=== PATIENT | female | born 1955 | race Caucasian/White ===

== ENCOUNTER 2022-03-23 13:19 | Observation (INO) | payer OTHER ==
--- OUTSIDE RECORDS SUMMARY | 2022-03-23 13:22 | XMS REPORT | Continuity of Care Document ---
:1955 Author Organization [facility] t Address [address] [place] [address] Care Team Providers Name Role Phone Natalee Yolanda Attending Clinician Unavailable Problems This patient has no known problems. Allergies, Adverse Reactions, Alerts Allergy Allergy Status Severity Reaction(s) Onset Inactive Treating Comm ents Source Name Type Date Date Clinician Aspirin Adverse Active Info Not Common Reaction Available [facility] Medications Ordered Filled Start Stop Current Ordering Indication Dosage Frequency Signature Comments Components Source Medication Medication Date Date Medication? Clinician (SIG) Name Name Pallavi Olivo 0 Yes Yolanda 1 tablet Comm on Thyroid Thyroid 1-24 [place] [facility] 00:00: empty - [facility] 00 stomach [facility] Procedures This patient has no known procedures. Encounters Start End Encounter Admission Attending Care Care Encounter Source Date/Time Date/Time Type Type Clinicians Facility Department ID 2022-02-06 Outpatient OLGA Albright [facility] [id number] Common 10:31:00 Yolanda [id number] [facility] 2022-01-24 Outpatient OLGA Albright [facility] [id number] Common 07:37:00 Yolanda [facility] 2021-09-12 Outpatient Natalee [facility] [id number] Common 14:35:00 Yolanda [facility] 2021-08-28 Outpatient [place], STLMLC STL[facility]C [id number] Common 14:37:53 Yolanda [id number] [facility] 2021-08-28 Outpatient Natalee, STLMLC STL[facility]C [id number] Common 13:25:48 Yolanda [id number] [facility] 2022-02-10 2022-02-10 ambulatory [facility]C ST[facility] [id number] Common 00:00:00 00:00:00 [facility] 2022-01-27 2022-01-27 ambulatory STLMLC STL[facility]C [id number] Common 00:00:00 00:00:00 [facility] 2021-08-06 2021-08-06 ambulatory STLMLC STL[facility]C [id number] Common 00:00:00 00:00:00 [facility] 2021-06-25 2021-06-25 ambulatory STLMLC STLMLC [id number] Common 00:00:00 00:00:00 [facility] 2021-06-13 2021-06-13 ambulatory STLMLC STLMLC [id number] Common 00:00:00 00:00:00 [facility] 2021-06-12 2021-06-12 ambulatory STLMLC STL[facility]C [id number] Common 00:00:00 00:00:00 [facility] 2021-06-12 2021-06-12 ambulatory STLMLC STLMLC [id number] Common 00:00:00 00:00:00 [facility] 2021-04-15 2021-04-15 Outpatient [facility]C STL[facility]C [id number] Common 00:00:00 00:00:00 [facility] 2021-03-13 2021-03-13 Outpatient [facility]C STL[facility] [id number] Common 00:00:00 00:00:00 [facility] 2021-01-28 2021-01-28 Outpatient STL[facility]C STL[facility]C [id number] Common 00:00:00 00:00:00 [facility] 2020-10-16 2020-10-16 Outpatient ST[facility]C ST[facility] [id number] Common 00:00:00 00:00:00 [facility] 2020-05-03 2020-05-03 Outpatient [facility] ST[facility] [id number] Common 00:00:00 00:00:00 [facility] 2019-12-09 2019-12-09 [facility] [id number] Common 14:00:00 14:00:[address] [facility] 2019-12-07 2019-12-07 [facility] [id number] Common 14:00:00 14:00:[address] [facility] 2019-11-09 2019-11-09 [facility] [id number] Common 09:02:00 09:02:[address] [facility] 2019-08-08 2019-08-08 [facility] [id number] Common 16:00:00 16:00:[address] [facility] 2019-05-20 2019-05-20 [facility] [id number] Common 15:16:00 15:16:[address] [facility] 2019-05-05 2019-05-05 [facility] [id number] Common 09:40:00 09:40:[address] [facility] 2019-05-03 2019-05-03 [facility] [id number] Common 14:11:00 14:11:[address] [facility] 2019-04-12 2019-04-12 [facility] [id number] Common 09:00:00 09:00:[address] [facility] 2019-02-09 2019-02-09 [facility] [id number] Common 10:00:00 10:00:[address] [facility] 2019-01-21 2019-01-21 [facility] [id number] Common 12:51:00 12:51:[address] [facility] 2019-01-21 2019-01-21 [facility] [id number] Common 11:45:00 11:45:[address] [facility] 2018-11-30 2018-11-30 [facility] [id number] Common 10:16:00 10:16:[address] [facility] 2018-11-22 2018-11-22 [facility] [id number] Common 14:20:00 14:20:[address] [facility] 2018-11-15 2018-11-15 [facility] [id number] Common 11:40:00 11:40:[address] [facility] 2018-07-28 2018-07-28 [facility] [id number] Common 16:32:00 16:32:[address] [facility] 2018-03-10 2018-03-10 [facility] [id number] Common 13:00:00 13:00:[address] [facility] 2018-03-08 2018-03-08 [facility] [id number] Common 11:39:00 11:39:[address] [facility] 2018-03-02 2018-03-02 [facility] [id number] Common 11:00:00 11:00:[address] [facility] Results This patient has no known results.
[2022-03-23 14:54] LABS: Absolute Lymphocytes (CBC) 0.9 K/uL (0.7-4.9); Hematocrit 41.1 % (36.0-45.0); Lymphocytes % 7.9 % (15.3-44.8); MCV 92.4 fL (80-100); MPV 7.3 fL (7.6-11.3); RBC Red Blood Cell Count 4.45 M/uL (3.86-4.86)
[2022-03-23] MEDS ORDERED: NA CHLORIDE 0.9% 1,000 ML ONE (14:59)
[2022-03-23] MEDS ORDERED: MORPHINE 2 MG/ML SYR ONE (14:59)
[2022-03-23] MEDS ORDERED: ONDANSETRON 4 MG/2 ML VIAL ONE ×2 (14:59→17:26)
[2022-03-23 15:06] LABS: Urine Blood Negative (Negative); Urine Glucose Negative (Negative); Urine Protein 1+ (Negative); Urine Specific Gravity 1.025 (1.005-1.030)
[2022-03-23 15:07] LABS: Albumin 3.6 g/dL (3.4-5.0); Bilirubin Total 1.2 mg/dL (0.2-1.0); Potassium 3.8 mmol/L (3.5-5.1); Protein, Total 7.2 g/dL (6.4-8.2)
[2022-03-23 15:33] LABS: Urine Bacteria <20 /HPF (<20); Urine RBC <5 /HPF (None Seen)
[2022-03-23 15:34] LABS: Urine Mucus 4+ /HPF (None Seen)
--- NOTE | 2022-03-23 16:01 | RAD REPORT ---
EXAM DESCRIPTION: CT - Abdomen Pelvis W Contrast - 03/23/2022 3:36 pm CLINICAL HISTORY: RLQ abdominal pain COMPARISON: No comparisons TECHNIQUE: Biphasic, helical CT imaging of the abdomen and pelvis was performed following 100 ml non -ionic IV contrast. No oral contrast administered. All CT scans are performed using dose optimization technique as appropriate and may include automated exposure control or mA/KV adjustment according to patient size. FINDINGS: No suspicious findings in the lung bases. The liver, spleen, and pancreas show no suspicious findings. Gallbladder and biliary tree are also wi thout suspicious finding. Symmetric renal function is seen with no hydronephrosis or suspicious renal mass. No pyelonephritis o r acute parenchymal process. No bladder abnormalities. No adrenal abnormalities. In the right lower quadrant there is a tubular structure 11 mm in diameter. There is an associated 11 millimeter hyperdensity present not seen elsewhere in the abdomen or pelvis. There is fluid and ariela a in the surrounding fatty tissues. Terminal ileum and ileocecal valve are not well defined. The shelley ent has a paucity of intraabdominal fat resulting in crowded isodense bowel structures. No normal air -filled appendix seen. Full assessment is limited in the absence of oral contrast. Exam findings are considered suspicious for acute appendicitis. No dilated large or small bowel loops. No free air or p neumatosis. No abscess or abnormal fluid collection. No hernia, mass or bulky lymphadenopathy. No suspicious bony findings. IMPRESSION: As detailed above, right lower quadrant findings are highly suspicious for acute appendi citis. No free air, abscess or other complicating factor seen. Appendix is in classic right lower quadrant l ocation.
--- NOTE | 2022-03-23 16:43 | EDPHYS ---
Physician Documentation [facility] Name: Konrad Mims Age: 66 yrs Sex: Female : 1955 Arrival Date: 03/23/2022 Time: 13:21 Bed 19 Private MD: Yolanda Albright ED Physician Apryl Diaz HPI: 03/23 14:30 This 66 yrs old Female presents to ER via Ambulatory with complaints of Abdominal Pain. cp 14:30 The patient presents with abdominal pain right lower quadrant. Onset: The cp symptoms/episode began/occurred yesterday, and became worse today. The symptoms do not radiate. Associated signs and symptoms: Pertinent positives: diarrhea, nausea, vomiting, Pertinent negatives: chest pain, constipation, dysuria, fever. The symptoms are described as constant. Modifying factors: the symptoms are aggravated by movement, pressure. 14:30 Severity of pain: in the emergency department the pain is unchanged despite home cp interventions. Historical: - Allergies: 14:09 Aspirin; iw - Home Meds: 14:09 [place] Thyroid 15 mg Oral tab daily [Active]; iw - PMHx: 14:09 Hypothyroidism; iw - Immunization history:: Adult Immunizations unknown. - Social history:: Smoking status: unknown. ROS: 14:35 Constitutional: Negative for body aches, chills, fever, poor PO intake. cp 14:35 Eyes: Negative for injury, pain, redness, and discharge. cp 14:35 ENT: Negative for drainage from ear(s), ear pain, sore throat, difficulty swallowing, difficulty handling secretions. 14:35 Cardiovascular: Negative for chest pain, palpitations. 14:35 Respiratory: Negative for cough, shortness of breath, wheezing. 14:35 Abdomen/GI: Positive for abdominal pain, nausea, vomiting, and diarrhea, of the right lower quadrant, Negative for constipation, black/tarry stool, rectal bleeding. 14:35 Neuro: Negative for altered mental status, dizziness, headache, weakness. 14:35 All other systems are negative. Exam: 14:40 Constitutional: The patient appears in no acute distress, alert, awake, non-toxic, well cp developed, well nourished, uncomfortable. 14:40 Head/Face: Normocephalic, atraumatic. cp 14:40 Eyes: Periorbital structures: appear normal, Conjunctiva: normal, no exudate, no injection, Sclera: no appreciated abnormality, Lids and lashes: appear normal, bilaterally. 14:40 ENT: External ear(s): are unremarkable, Nose: is normal, Mouth: Lips: moist, Oral cp mucosa: pink and intact, moist, Posterior pharynx: Airway: no evidence of obstruction, patent. 14:40 Chest/axilla: Inspection: normal. cp 14:40 Cardiovascular: Rate: normal, Rhythm: regular, Edema: is not appreciated, JVD: is not appreciated. 14:40 Respiratory: the patient does not display signs of respiratory distress, Respirations: normal, no use of accessory muscles, no retractions, labored breathing, is not present, Breath sounds: are clear throughout, no decreased breath sounds, no stridor, no wheezing. 14:40 Abdomen/GI: Inspection: abdomen appears normal, Bowel sounds: active, all quadrants, Palpation: soft, in all quadrants, moderate abdominal tenderness, in the right lower quadrant, rebound tenderness, is not appreciated, involuntary guarding, is elicited in the right lower quadrant. 14:40 Back: CVA tenderness, is absent. 14:40 Skin: cellulitis, is not appreciated, no rash present. 14:40 Neuro: Orientation: to person, place \T\ time. Mentation: is normal. Vital Signs: 14:07 BP 134 / 82; Pulse 83; Resp 16; Temp 99.1; Pulse Ox 100% on R/A; iw 14:58 BP 107 / 68; Pulse 74; Resp 16; Pulse Ox 100% on R/A; Pain 6/10; bm7 16:07 BP 122 / 78; Pulse 74; Resp 15; Pulse Ox 95% ; jl7 MDM: 14:26 Patient medically screened. cp 15:00 Differential diagnosis: appendicitis, diverticulitis, Pyelonephritis, Ureterolithiasis, cp urinary tract infection, colitis. 16:30 Physician consultation: Ephraim Beckham MD was called at 16:25, was contacted at 16:30, regarding consult, patient's condition, would like admission per Dr. Pankaj Pelaez MD wants OR crew contacted at this time. 16:30 Data reviewed: vital signs, nurses notes, lab test result(s), radiologic studies, CT cp scan, and as a result, I will admit patient. Counseling: I had a detailed discussion with the patient and/or guardian regarding: the historical points, exam findings, and any diagnostic results supporting the discharge/admit diagnosis, lab results, radiology results, the need for further work-up and treatment in the hospital. 03/23 14:24 Order name: CBC with Diff; Complete Time: 15:04 03/23 15:05 Interpretation: Normal except: WBC 11.40; MPV 7.3; MARK% 86.1; LYM% 7.9; NEUT A 9.8. 03/23 14:24 Order name: CMP; Complete Time: 16:20 03/23 16:20 Interpretation: Normal except: NA 131; GLUC 145; BUN 21; GFR 86; BILIT 1.2; GLOB 3.6; cp A/G 1.0. 03/23 14:24 Order name: Lipase; Complete Time: 16:20 03/23 14:27 Order name: Urine Microscopic Only; Complete Time: 16:20 03/23 15:06 Order name: Urine Dipstick-Ancillary; Complete Time: 16:20 [facility] 03/23 16:20 Interpretation: Normal except: UKET 1+; UPROT 1+; UESTR 1+. 03/23 15:37 Order name: Urine Culture [facility] 03/23 14:27 Order name: CT Abd/Pelvis - IV Contrast Only; Complete Time: 16:20 03/23 16:21 Interpretation: Report reviewed. 03/23 16:51 Order name: SARS RAPID; Complete Time: 21:08 03/23 14:24 Order name: IV Saline Lock; Complete Time: 14:57 03/23 14:24 Order name: Labs collected and sent; Complete Time: 14:57 03/23 14:24 Order name: Urine Dipstick-Ancillary (obtain specimen); Complete Time: 16:07 Administered Medications: 14:57 Drug: morphine 2 mg Route: IVP; Infused Over: 4 mins; Site: left forearm; bm7 15:20 Follow up: Response: No adverse reaction; Pain is decreased jl7 14:57 Drug: Zofran (Ondansetron) 4 mg Route: IVP; Site: left forearm; bm7 16:08 Follow up: Response: No adverse reaction jl7 14:57 Drug: NS 0.9% 500 ml Route: IV; Rate: bolus; Site: left forearm; bm7 16:00 Follow up: Response: No adverse reaction; IV Status: Completed infusion; IV Intake: jl7 500ml 16:47 Drug: Mefoxin (cefOXitin) 1 grams Route: IVPB; Infused Over: 30 mins; Site: left bm7 forearm; 16:47 Drug: metroNIDAZOLE 500 mg Volume: 100 ml; Route: IVPB; Infused Over: 30 mins; Site: bm7 left forearm; 16:47 Drug: morphine 4 mg Route: IVP; Infused Over: 4 mins; Site: left forearm; bm7 Disposition Summary: 03/23/22 16:42 Hospitalization Ordered Hospitalization Status: Inpatient Admission cp Condition: Stable cp Problem: new cp Symptoms: have improved cp Bed/Room Type: Standard cp Provider: Pankaj Pelaez(03/23/22 16:43) cp Location: [facility] ER HOLD(03/23/22 17:37) eb Room Assignment: ERHOLD-(03/23/22 17:37) eb Diagnosis - Acute appendicitis with localized peritonitis cp Forms: - Medication Reconciliation Form cp - SBAR form cp Signatures: Dispatcher [employer] EDMS Beata Del Toro FNP-C INSPECTOR OPEN DIE-Csnw Teresita De Los Santos, RN RN Devin Gallardo PA PA cp Lenore Hanna RN RN jl7 Lo Morocho Brittany, RN RN bm7 Corrections: (The following items were deleted from the chart) 16:43 16:42 Ephraim Beckham cp cp 16:43 16:42 Telemetry/MedSurg (Inpatient) cp cp 16:43 16:42 cp cp 17:37 16:43 Operating Room cp eb 17:37 16:43 cp eb
--- NOTE | 2022-03-23 16:43 | ER ---
Nurse's Notes [facility] Name: Konrad Mims Age: 66 yrs Sex: Female : 1955 Arrival Date: 03/23/2022 Time: 13:21 Bed 19 Private MD: Yolanda Albright Diagnosis: Acute appendicitis with localized peritonitis Presentation: 03/23 14:07 Chief complaint: Patient states: started yesterday afternoon with abd distention, then iw had vomiting, diarrhea and pain localized to RLQ. Coronavirus screen: At this time, the client does not indicate any symptoms associated with coronavirus-19. Ebola Screen: Patient negative for fever greater than or equal to 101.5 degrees Fahrenheit, and additional compatible Ebola Virus Disease symptoms Patient denies exposure to infectious person. Patient denies travel to an Ebola-affected area in the 21 days before illness onset. No symptoms or risks identified at this time. Initial Sepsis Screen: Does the patient meet any 2 criteria? No. Patient's initial sepsis screen is negative. Does the patient have a suspected source of infection? No. Patient's initial sepsis screen is negative. Risk Assessment: Do you want to hurt yourself or someone else? Patient reports no desire to harm self or others. Onset of symptoms was March 22, 2022. 14:07 Method Of Arrival: Ambulatory iw 14:07 Acuity: MINNIE 3 iw Historical: - Allergies: 14:09 Aspirin; iw - Home Meds: 14:09 [place] Thyroid 15 mg Oral tab daily [Active]; iw - PMHx: 14:09 Hypothyroidism; iw - Immunization history:: Adult Immunizations unknown. - Social history:: Smoking status: unknown. Screenin:30 Abuse screen: Denies threats or abuse. Denies injuries from another. Nutritional jl7 screening: No deficits noted. Tuberculosis screening: No symptoms or risk factors identified. Fall Risk IV access (20 points). Total Mullins Fall Scale indicates No Risk (0-24 pts). Assessment: 14:20 General: Appears in no apparent distress. uncomfortable, Behavior is calm, cooperative, jl7 appropriate for age. Pain: Complains of pain in right lower quadrant Pain currently is 6 out of 10 on a pain scale. Pain began 1 day ago. Is continuous. Neuro: Level of Consciousness is awake, alert, obeys commands, Oriented to person, place, time, situation. Cardiovascular: Patient's skin is warm and dry. Respiratory: Airway is patent Respiratory effort is even, unlabored, Respiratory pattern is regular, symmetrical. GI: Abdomen is non-distended, Bowel sounds present X 4 quads. Abdomen is tender to palpation in right lower quadrant Reports diarrhea, nausea, vomiting. Derm: Skin is pink, warm \T\ dry. 15:30 Reassessment: Patient appears in no apparent distress at this time. Patient and/or jl7 family updated on plan of care and expected duration. Pain level reassessed. Patient is alert, oriented x 3, equal unlabored respirations, skin warm/dry/pink. Patient states feeling better. Patient states symptoms have improved. Vital Signs: 14:07 BP 134 / 82; Pulse 83; Resp 16; Temp 99.1; Pulse Ox 100% on R/A; iw 14:58 BP 107 / 68; Pulse 74; Resp 16; Pulse Ox 100% on R/A; Pain 6/10; bm7 16:07 BP 122 / 78; Pulse 74; Resp 15; Pulse Ox 95% ; jl7 ED Course: 13:21 Patient arrived in ED. as 13:21 Yolanda Albright is Private Physician. as 13:56 [facility] cp 13:56 Apryl Diaz MD is Attending Physician. cp 14:08 Triage completed. iw 14:24 Lenore Hanna, JOSEPH is Primary Nurse. jl7 14:30 No provider procedures requiring assistance completed. jl7 14:30 Patient has correct armband on for positive identification. Bed in low position. Call 7 light in reach. Side rails up X 1. 14:34 Initial lab(s) drawn, by ED staff, sent to lab. Inserted saline lock: 20 gauge in left jl7 antecubital area, using aseptic technique. Blood collected. 14:46 Arm band placed on. iw 14:58 Client placed on continuous cardiac and pulse oximetry monitoring. NIBP monitoring bm7 applied. Warm blanket given. 15:38 CT Abd/Pelvis - IV Contrast Only In Process Unspecified. EDMS 16:42 Ephraim Beckham MD is Hospitalizing Provider. cp 16:43 Pankaj Pelaez MD is Hospitalizing Provider. cp Administered Medications: 14:57 Drug: morphine 2 mg Route: IVP; Infused Over: 4 mins; Site: left forearm; 7 15:20 Follow up: Response: No adverse reaction; Pain is decreased jl7 14:57 Drug: Zofran (Ondansetron) 4 mg Route: IVP; Site: left forearm; 7 16:08 Follow up: Response: No adverse reaction 7 14:57 Drug: NS 0.9% 500 ml Route: IV; Rate: bolus; Site: left forearm; [facility] 16:00 Follow up: Response: No adverse reaction; IV Status: Completed infusion; IV Intake: jl7 500ml 16:47 Drug: Mefoxin (cefOXitin) 1 grams Route: IVPB; Infused Over: 30 mins; Site: left bm7 forearm; 16:47 Drug: metroNIDAZOLE 500 mg Volume: 100 ml; Route: IVPB; Infused Over: 30 mins; Site: bm7 left forearm; 16:47 Drug: morphine 4 mg Route: IVP; Infused Over: 4 mins; Site: left forearm; [facility] Medication: 15:30 VIS not applicable for this client. jl7 Intake: 16:00 IV: 500ml; Total: 500ml. 7 Outcome: 16:42 Decision to Hospitalize by Provider. cp 18:38 Patient left the ED. iw Signatures: Dispatcher [employer] Raquel Mcintyre Irene, RN RN iw Devin Milner PA PA cp Leal, Jahala, RN RN jl7 Clemencia Holder RN RN bm7
[2022-03-23] MEDS ORDERED: MORPHINE 4 MG/ML SYR ONE (16:48)
[2022-03-23] MEDS ORDERED: CEFOXITIN SODIUM 1 GM/VIAL ONE (16:49)
[2022-03-23] MEDS ORDERED: METRONIDAZOLE 500mg IVPB 500 MG/100 ML BAG IV ONE (16:49)
[2022-03-23] MEDS ORDERED: NA CHLORIDE 0.9% 50 ML ONE (16:49)
[2022-03-23] MEDS ORDERED: BUPIVACAINE 0.5% PF 10 ML VIAL ONE (17:18)
[2022-03-23 17:23] LABS: SARS-CoV-2 Antigen Rapid Res Negative (Negative)
[2022-03-23] MEDS ORDERED: MIDAZOLAM HCL 2 MG/2 ML INJ ONE (17:24)
[2022-03-23] MEDS ORDERED: propofoL 200 MG/20 ML VIAL IV ONE (17:24)
[2022-03-23] MEDS ORDERED: LIDOCAINE 1% MPF 5 ML VIAL ONE (17:24)
[2022-03-23] MEDS ORDERED: FENTANYL CITR 100 MCG/2 ML ONE (17:24)
[2022-03-23] MEDS ORDERED: GLYCOPYRROLATE 0.2 MG/ML SYR ONE (17:25)
[2022-03-23] MEDS ORDERED: NEOSTIGMINE 1 MG/ML -10 ML VIAL ONE (17:26)
[2022-03-23] MEDS ORDERED: KETOROLAC 30 MG/ML INJ ONE (17:26)
[2022-03-23] MEDS ORDERED: ROCURONIUM 50 MG/5 ML VIAL IV ONE ×2 (17:26→18:24)
[2022-03-23] MEDS ORDERED: MORPHINE 10 MG/ML VIAL ONE (17:26)
[2022-03-23] MEDS ORDERED: dexAMETHasone 4 MG/ML VIAL ONE (17:26)
[2022-03-23] MEDS ORDERED: Ringers Lactate 1,000 ML IV ONE (17:31)
--- NOTE | 2022-03-23 17:34 | P.CNS ---
Date of Consult: 03/23/22 Reason for consult: Abdominal pain History of present illness: Patient is a 66-year-old female presents with 24- hour history of diffuse periumbilical abdominal pain localizing to the right lower quadrant. Pain is associated with nausea and vomiting and anorexia. Patient denies fever or chills. No diarrhea or constipation. No dysuria or hematuria. No sore throat, runny nose, cough, headaches, dizziness and chest pain. Review of systems: Otherwise unremarkable Past medical history: Hypothyroidism Past surgical history: Right knee surgery Allergies: Aspirin Social history: Patient denies smoking or drinking alcohol Family history: Blood clots in few family members Vital signs: Stable, afebrile Physical exam: Awake alert oriented x3 Head and neck exam: Cranial nerves II through XII grossly within normal limits, no neck masses, no JVD, throat clear and neck supple Chest: Clear Heart: S1-S2 Abdomen: Soft, nondistended, positive bowel sounds, positive Rovsing's sign and right lower quadrant tenderness with rebound. Extremity: Neurovascular intact, nontender Neuro: Nonfocal Diagnostic data: CT of the abdomen pelvis reviewed with Dr. Pavon. Findings are consistent with acute appendicitis. Patient has leukocytosis. Assessment: Acute appendicitis Plan/recommendation: Admit, n.p.o., IV fluids, IV antibiotics and to the OR for laparoscopic appendectomy possible open. Patient resents risks, benefits and alternatives and agrees to procedure. CC:
[2022-03-23] MEDS ORDERED: NA CIT/CITRIC AC 30 ML ORAL UDC ONE (17:38)
[2022-03-23] MEDS ORDERED: ONDANSETRON 4 MG/2 ML VIAL IV PRN (18:37)
[2022-03-23] MEDS ORDERED: HYDROMORPHONE HCL 1 MG/ML INJ IV PRN (18:37)
[2022-03-23] MEDS ORDERED: HYDROCODONE/APAP 7.5/325 MG TAB PO PRN (18:37)
--- NOTE | 2022-03-23 18:47 | P.OP ---
Date of Service: 03/23/22 Preop diagnosis: Acute appendicitis Postop diagnosis: Acute suppurative appendicitis Procedure performed: Laparoscopic appendectomy Surgeon: Ephraim Beckham MD Iron Carrier: None Estimated blood loss: Minimal Specimen: Appendix Findings: As above Anesthesia: General Complications: None Drains: None Fluids and blood products: Nonapplicable Disposition: Recovery room Operative note: Patient brought to the OR and placed in the supine position. General anesthesia begun. Patient prepped and draped in the usual sterile fashion. Marcaine 0.5% infiltrated locally. 15 blade used to make a 1 cm supraumbilical midline incision. Subcutaneous tissue divided. Fascia identified and divided. #1 Vicryl stay suture placed in the fascia. Peritoneal cavity entered with sharp and blunt dissection. 12 mm trocar placed into the peritoneal cavity under direct vision. Pneumoperitoneum established. 2 5 mm trochars placed under direct vision. 1 trocar placed in the suprapubic region and the other in the left lower quadrant. Laparoscopy revealed acute suppurative appendicitis. Appendix dissected away from the ileocecal valve area as well as the peritoneal surface. Endo SAVI stapling device used to divide the base of the appendix on the cecum as well as the mesoappendix. There was no evidence of bleeding noted. Right lower quadrant pelvis irrigated effluent clear. No other evidence of disease identified. Appendix retrieved through the umbilicus via Endo Catch bag. All trochars removed under direct vision. Stay sutures tied to each other to reapproximate the fascial defect. Subcutaneous wounds irrigated and bleeding controlled cautery. 3-0 chromic used to reapproximate subcutaneous tissue. And suraj used to close skin. Sterile dressing applied and patient awakened. Patient taken to recovery room in good general condition. CC:
[2022-03-23] MEDS: Ringers Lactate 1,000 ML IV SCH (20:21)
[2022-03-23 20:40] VITALS: TEMP 99.1
--- NOTE | 2022-03-23 21:09 | P.HP ---
Certification for Inpatient Patient admitted to: Observation With expected LOS: <2 Midnights Patient will require the following post-hospital care: None Practitioner: I am a practitioner with admitting privileges, knowledge of patient current condition, hospital course, and medical plan of care. Services: Services provided to patient in accordance with Admission requirements found in Title 42 Section 412.3 of the Code of Federal Regulations <Beata Del Toro - Last Filed: 03/23/22 21:03> Patient History Date of Service: 03/23/22 Primary Care Provider: Evens Albright NP Reason for admission: Acute appendicitis History of Present Illness: Pt reported to ED today with c/o lower abd pain and N/V. Eval in ED revealed acute appendicitis. Pt went to OR and Dr. Beckham performed appendectomy. Pt moved to overflow ICU 2. Home medications list reviewed: Yes ([place] thyroid 15mg po daily) - Past Medical/Surgical History Has patient received pneumonia vaccine in the past: No Diabetic: No -: hypothyroidism Past Surgical History: Patient denies surgical history - Social History Smoking Status: Never smoker Alcohol use: No CD- Drugs: No Caffeine use: Yes Place of Residence: Home (Pt lives at home, has always maintained a healthy di et) <Beata Del Toro - Last Filed: 03/23/22 21:03> Date of Service: 03/24/22 - Family History Father -: Heart disease Mother Notes: alz <Pankaj Pelaez - Last Filed: 03/24/22 05:55> Allergies aspirin Allergy (Verified 03/23/22 18:49) Itching/Hives/Rash Home Medications: Thyroid Tab [[place] Thyroid*] 15 mg PO DAILY 03/24/22 Review of Systems General: Malaise Eyes: Unremarkable ENT: Unremarkable Respiratory: Unremarkable Cardiovascular: Unremarkable Gastrointestinal: Vomiting, Abdominal Pain Genitourinary: Unremarkable Musculoskeletal: Unremarkable Integumentary: Unremarkable Neurological: Unremarkable Lymphatics: Unremarkable <AlvertoBeata - Last Filed: 03/23/22 21:03> Physical Examination - Vital Signs Temperature: 99.1 F Blood Pressure: 107/68 Pulse: 74 Respirations: 16 Pulse Ox (%): 97 - Physical Exam General: Alert, Oriented x3, Cooperative HEENT: Atraumatic, Normocephalic, PERRLA Neck: Supple, JVD not distended Respiratory: Clear to auscultation bilaterally, Normal air movement Cardiovascular: Normal pulses, Regular rate/rhythm, Normal S1 S2 Capillary refill: <2 Seconds Gastrointestinal: Hypoactive Musculoskeletal: No clubbing, No swelling, No contractures, No erythema Integumentary: No rashes, No breakdown, No significant lesion Neurological: Normal speech, Normal strength at 5/5 x4 extr Lymphatics: No axilla or inguinal lymphadenopathy - Studies Laboratory Data (last 24 hrs) 03/23/22 14:30: Sodium 131 L, Potassium 3.8, BUN 21 H, Creatinine 0.76, Glucose 145 H, Total Bilirubin 1.2 H, AST 23, ALT 25, Alkaline Phosphatase 56, Lipase 119 03/23/22 14:30: WBC 11.40 H, Hgb 14.0, Hct 41.1, Plt Count 165 <Beata Del Toro - Last Filed: 03/23/22 21:03> - Studies Laboratory Data (last 24 hrs) 03/23/22 14:30: Sodium 131 L, Potassium 3.8, BUN 21 H, Creatinine 0.76, Glucose 145 H, Total Bilirubin 1.2 H, AST 23, ALT 25, Alkaline Phosphatase 56, Lipase 119 03/23/22 14:30: WBC 11.40 H, Hgb 14.0, Hct 41.1, Plt Count 165 <Pankaj Pelaez - Last Filed: 03/24/22 05:55> Assessment and Plan - Plan Acute appendicitis, a/p appendectomy today. Post operative observation Follow up with Dr. Beckham outpatient as scheduled Discharge Plan: Home Plan to discharge in: 24 Hours - Advance Directives Does patient have a Living Will: No Does patient have a Durable POA for Healthcare: No - Code Status/Comfort Care Code Status Assessed: Yes (Full) <Beata Del Toro - Last Filed: 03/23/22 21:03> - Plan Agree with plan of care as noted above. Patient with hypothyroidism, continue home med - armour thyroid continue antibiotic per general surgery IVF overnight diet as tolerated <Pankaj Pelaez - Last Filed: 03/24/22 05:55>
[2022-03-23 22:03] VITALS: O2SAT 97
[2022-03-24] MEDS: PIPER TAZO 3.375 GM in NA CHLORIDE 0.9% 100 ML IV SCH ×2 (00:47→08:41)
[2022-03-24] MEDS: Ringers Lactate 1,000 ML IV SCH (05:00)
[2022-03-24 05:13] LABS: Absolute Lymphocytes (CBC) 1.5 K/uL (0.7-4.9); Hematocrit 37.4 % (36.0-45.0); Lymphocytes % 13.7 % (15.3-44.8); MCV 91.8 fL (80-100); MPV 7.7 fL (7.6-11.3); RBC Red Blood Cell Count 4.08 M/uL (3.86-4.86)
[2022-03-24 05:35] VITALS: BP 97/57
[2022-03-24] MEDS: THYROID 30 MG TAB PO SCH ×2 (06:30→08:40)
[2022-03-24 06:33] VITALS: BMI 22.7
--- NOTE | 2022-03-24 09:40 | P.PN ---
Date of Service: 03/24/22 Subjective: Patient is awake and alert. Patient is tolerating clear liquids. Pain is well controlled. Objective: Vitals are stable and she is afebrile White count is 11,000 Abdomen: Soft, nondistended, positive bowel sounds with minimal tenderness at the incisional site Assessment: Status post laparoscopic appendectomy, clinically doing well Plan: We will advance diet, if tolerated, patient will be discharged home later today. Augmentin and Tylenol 3 has been called into patient's pharmacy. Discharge instructions have been given. Patient is to follow-up with me in 1 week. CC:
== END 2022-03-24 10:20 | disposition home or self-care (01) ==
LOC: ER 13:19 → ERHOLD 18:38 → 3RD-ICU 19:25
PROVIDERS: ADMIT Hospitalist; ATTEND Hospitalist
PROC: 0DTJ4ZZ Resection of Appendix, Percutaneous Endoscopic Approach (ICD-10-PCS; principal; 2022-03-23 18:00)
DX: K35.80 Unspecified acute appendicitis (principal); E03.9 Hypothyroidism, unspecified; Z79.899 Other long term (current) drug therapy; Z88.6 Allergy status to analgesic agent; Z20.822 Contact with and (suspected) exposure to COVID-19; Z82.49 Family history of ischemic heart disease and other diseases of the circulatory system; Z82.0 Family history of epilepsy and other diseases of the nervous system
CPT/HCPCS: 96361; 87088; 85025 ×2; 87086; 36415; 88304; 83690; 80053; 74177; 94010; 96375; 96374; 99284; 87811; 44970; Q9967; J2704; J1100; J2710; J2543 ×2; J2250; J3010; J2270; J7120 ×2; J7030; J0694; J2405 ×2; G0378 ×3; 81003; 81015; 87077; 87186